=== PATIENT | male | born 1945 | race Caucasian/White ===

== ENCOUNTER → 2024-03-04 06:09 | Outpatient (REF) | payer MEDICARE, OTHER, SELFPAY ==
[2024-03-04 10:01] LABS: PSA, Total - Screen 1.76 ng/ml (0.0-4.0)
[2024-03-04 10:04] LABS: ALT (SGPT) 20 U/L (0-50); AST (SGOT) 18 U/L (17-59); Albumin 4.1 g/dl (3.5-5.0); Alkaline Phosphatase 250 U/L (38-126); Blood Urea Nitrogen 27 mg/dl (9-20); Calcium 9.5 mg/dl (8.4-10.2); Carbon Dioxide 26 mmol/L (22-30); Chloride 98 mmol/L (98-107); Glucose 464 mg/dl (70-99); HDL Cholesterol 25 mg/dl; LDL Cholesterol, Calculated 47 mg/dl; Potassium 4.8 mmol/L (3.5-5.1); Sodium 134 mmol/L (135-145); Total Bilirubin 0.7 mg/dl (0.2-1.3); Total Cholesterol 139 mg/dl (50-199); Total Protein 6.3 g/dl (6.3-8.2); Triglyceride 337 mg/dl (10-149); Very Low Density Lipoprotein 67 mg/dl (0-30); eGFR > 60.00
[2024-03-04 10:14] LABS: Glycohemoglobin (HgbA1c) 12.2 % (4.0-5.6)
== END ==
LOC: HWLAB 06:09
PROVIDERS: ATTENDING PHYSICIAN Family Medicine
DX: Z00.00 Encounter for general adult medical examination without abnormal findings (principal); I10 Essential (primary) hypertension; R73.9 Hyperglycemia, unspecified; I25.10 Atherosclerotic heart disease of native coronary artery without angina pectoris; E78.2 Mixed hyperlipidemia; N40.0 Benign prostatic hyperplasia without lower urinary tract symptoms; Z12.5 Encounter for screening for malignant neoplasm of prostate
CPT/HCPCS: 36415; 80053; 80061; 83036; G0103

== ENCOUNTER → 2024-05-12 07:12 | Outpatient (REF) | payer MEDICARE, OTHER, SELFPAY | LOC: HWRCS 07:12 | PROVIDERS: ATTENDING PHYSICIAN Internal Medicine; FAMILY PHYSICIAN Family Medicine | DX: I25.10 Atherosclerotic heart disease of native coronary artery without angina pectoris (principal); I34.0 Nonrheumatic mitral (valve) insufficiency; I10 Essential (primary) hypertension; R94.31 Abnormal electrocardiogram [ECG] [EKG]; I65.23 Occlusion and stenosis of bilateral carotid arteries; I45.4 Nonspecific intraventricular block | CPT/HCPCS: 93306 ==